=== PATIENT | male | born 1950 | race Caucasian/White ===

== ENCOUNTER 2018-10-20 06:05 | Inpatient (IN) | payer OTHER ==
[2018-10-09 09:04] LABS: ABSOLUTE BASOPHILS 0.1 thou/uL (0.0-0.2); ABSOLUTE EOSINOPHILS 0.2 thou/uL (0.0-0.7); ABSOLUTE LYMPHOCYTES 1.3 thou/uL (0.8-5.3); ABSOLUTE MONOCYTES 0.6 thou/uL (0.0-1.2); ABSOLUTE NEUTROPHILS 4.8 thou/uL (1.6-8.1); BASOPHILS 1.2 %; EOSINOPHILS 2.2 %; HEMOGLOBIN 14.5 gm/dL (14.0-18.0); LYMPHOCYTES 18.4 %; MCH 32.7 pg (26.0-34.0); MCHC 33.8 g/dL (28.0-37.0); MCV 96.7 fL (80.0-100.0); MPV 6.5 fl. (7.2-11.1); NUCLEATED RBCS 0 /100WBC; PLATELET COUNT* 459 thou/uL (150-400); POLYS 69.2 %; RBC 4.45 mil/uL (4.50-6.00); RDW-CV 13.9 % (10.5-14.5); WBC 6.9 thou/uL (4.0-11.0)
[2018-10-09 09:14] LABS: ALBUMIN 3.1 g/dL (3.4-5.0); CALCIUM 8.8 mg/dL (8.5-10.1); CREATININE 0.7 mg/dL (0.6-1.3); TOTAL BILIRUBIN 0.4 mg/dL (<0.1-1.0); TOTAL PROTEIN 6.7 g/dL (6.4-8.2)
[2018-10-09 09:18] LABS: APTT 32.6 Seconds (25.0-31.3); PROTIME 10.4 Seconds (9.20-11.50)
[2018-10-09 10:11] LABS: ESR (SEDRATE) 16 mm/hr (0-20)
--- NOTE | 2018-10-09 15:06 | EKG ---
[place] [address] ELECTROCARDIOGRAM REPORT Name: FABIO CHEEMAEN Kayode Room: [facility].#: [id number] Admission: Attend Phys: Iraj Mayes DO Discharge: Date of : 50 Report #: [id number] THIS REPORT FOR: //name// [facility] Test Date: 2018-10-09 Test Time: 09:10:35 Pat Name: JOEL CHEEMA Department: Room: Gender: M Sample Card Maker: : 1950 Requested By: Iraj Mayes Order Number: [id number] Reading MD: Mikael Cruz Measurements Intervals [place] Rate: 57 P: -57 PA: 199 QRS: 11 QRSD: 103 T: 12 QT: 386 QTc: 376 Interpretive Statements Sinus or ectopic atrial rhythm Low voltage, precordial leads No previous ECG available for comparison Electronically Signed On 10-09-2018 15:05:57 HOUSE DETECTIVE by Mikael Cruz [email or web address] <ELECTRONICALLY SIGNED> By: Mkiael Cruz MD, [facility] 10/09/18 1505 0910 0910 Mikael Cruz MD, FACC /EPI
[2018-10-09 21:06] LABS: GLYCOHEMOGLOBIN (HGB A1C) 5.1 % (4.8-5.6)
[~2018-10-20] VITALS: Ht 177.8 cm; Wt 122.2 kg
[~2018-10-20 06:05] MED LIST: COZAAR 25 MG TA25 M1 PO; LIPITOR 20 MG T20 M1 PO; LOPRESSOR50 PO; MOBIC15 MG PO; NORCO 5-325 TA1 EACH PO; SYNTHROID50 MCG PO
[2018-10-20] MEDS ORDERED: LASIX 20 MG TAB20 MG PO (06:19)
[2018-10-20 06:53] VITALS: BP 147/75
[2018-10-20 11:55] VITALS: BP 134/70
--- NOTE | 2018-10-20 12:05 | NUR ---
PATIENT TRANSFERRED FROM PACU TO ROOM 105. ALERT AND ORIENTED. PAIN CONTROLLED. DILAUDID IN PACU. ROOM AIR SAT 95%. CONT PULSE OX. CPAP AT HS. DRESSING TO LEFT KNEE C/D/I. POLAR CARE IN PLACE. SCD'S AND TEDS IN PLACE. VSS. ORIENTED TO ROOM AND ENVIROMENT. AT BEDSIDE. CALL LIGHT WITHIN REACH. WILL CONTINUE TO MONITOR.
[2018-10-20 16:33] VITALS: BP 118/65
--- NOTE | 2018-10-20 16:41 | NUR ---
PATIENT REMAINS ALERT AND ORIENTED. PAIN CONTROLLED WITH OXYIR. VOIDED PER URINAL. WORKED WITH PT. UP TO CHAIR. DRESSING TO KNEE C/D/I. TEDS IN PLACE. SCD'S WHILE IN BED. O2 2L. CONT PULSE OX. CPAP AT HS. TOLERATING MEALS. EDUCATED ON FALL PREVENTION. IVF INFUSING ORDERED. AT BEDSIDE. BED/CHAIR ALARM IN USE. CALL LIGHT WITHIN REACH. WILL CONTINUE TO MONITOR.
[2018-10-20 20:00] VITALS: BP 133/62
[2018-10-21 04:54] LABS: HEMATOCRIT 35.1 % (42.0-52.0); HEMOGLOBIN 11.7 gm/dL (14.0-18.0)
--- NOTE | 2018-10-21 05:55 | NUR ---
PATIENT HAS SLEPT OFF AND ON DURING THE NIGHT. VSS ON RA AND CONTINUOUS PULSE OXIMETRY. PAIN WELL CONTROLLED WITH ORAL PAIN MEDICATIONS ORDERED AND CHARTED. PATIENT IS UP WITH ASSIST X 1 WITH GAITBELT AND WALKER TO THE BATHROOM. DRESSING TO LEFT KNEE IS C/D/I, ICE PACK, KENDAL HOSE AND SCD'S IN PLACE. IV IN LEFT FOREARM-SL. IV ABT GIVEN WITHOUT ANY ADVERSE SIDE EFFECTS NOTED. PATIENT INSTRUCTED TO USE CALL LIGHT WHEN NEEDING ASSISTANCE. HOURLY ROUNDS MADE. WILL CONTINUE WITH PLAN OF CARE.
[2018-10-21 08:30] VITALS: BP 148/62
--- NOTE | 2018-10-21 12:13 | OP ---
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 POSTOPERATIVE DIAGNOSIS: Advanced degenerative joint disease of the left knee with morbid obesity. OPERATION PERFORMED: Left total knee arthroplasty with increased complexity secondary to morbid obesity. SURGEON: Iraj Mayes DO. ASSISTANTS: 1. Antony Tolbert DO 2. Linette Mayes DO ANESTHESIA: General with LMA. COMPLICATIONS: None. ESTIMATED BLOOD LOSS: 200 mL. IMPLANTS: Biomet Vanguard total knee system with a 31 mm asymmetric patella, a 67.5 mm posterior stabilized femoral component and a 79 mm fixed cruciate tibial baseplate and a 12 mm tibial bearing with 1 bag of Palacos cement plain. INDICATIONS FOR PROCEDURE: The patient is a 68-year-old male who had been followed in the orthopedic clinic regarding his longstanding left knee degenerative joint disease with severe pain. He has had poor quality of life due to the amount of arthritis in his left knee that keeps him from doing the activities which he enjoys. He has attempted conservative therapies over the last several years, which have not provided him with any significant long-term relief. He has tried oral anti-inflammatory, topical creams and intraarticular steroid injections as well as physical therapy for greater than 8 weeks, which has not given him any significant pain relief. The patient is here today for elective surgical intervention. Risks and complications [place] [address] OPERATIVE REPORT Name: JOEL CHEEMA Room: [address] IN [facility]#: [id number] Admission: 10/20/18 Attend Phys: Malaika Dave Discharge: Date of : 50 Report #: [id number] patient in detail. These include but are not limited to neurovascular damage, infection, fracture, need for further surgery, failure of prosthesis, recall of the prosthesis, allergies developed to the prosthesis, deep vein thrombosis, pulmonary embolism, myocardial infarction, rhabdomyolysis, continued chronic pain, decreased range of motion, need for blood transfusion, blood transfusion reactions, and even . A signed informed consent was signed by the patient. DESCRIPTION OF PROCEDURE: The patient was identified in preoperative holding area where the operative leg was marked. The patient was then taken to the operating room and placed on the operating table in the supine position. General anesthesia was then induced. A well-padded tourniquet was placed on the left proximal thigh. This was elevated to 300 mmHg throughout the procedure for a total of 77 minutes. Timeout was then performed and everyone is in the room was in agreement that this was the correct patient, procedure, operative side and that he had been given preoperative antibiotics. Incision was then made sharply through skin and subcutaneous tissue down to the level of the extensor mechanism. A standard medial parapatellar incision was then performed. The patient's weight and excessive soft tissue did necessitate extra help in the OR with retraction. The knee was then flexed to 120 degrees, where the chondral surfaces were found to be completely eburnated bone, particularly to the medial compartment of the joint. The excessive osteophytes were removed with a rongeur. The distal femoral drill guide was inserted into the femoral canal. The intramedullary cutting guide was then placed and pinned in the correct position. Distal cutting guide was pinned at 10 mm from the most distal aspect of the femur with a 5-degree valgus cut. Once pinned into place intramedullary kylah was removed. The distal femur was then resected. Next, attention was turned to the tibia. The external tibial guide was aligned in all planes and the cutting block was pinned into place. A 10 mm was taken from the high lateral points of the tibia. The bone wafer as well as the meniscal structures were then excised. Knee was then placed in extension, extension block was placed and was found to have symmetrical medial and lateral gapping. All pins were then removed. Next, the femur was measured anterior to posterior. The anterior and posterior measuring guide was then held in place and the 3-degree external rotation pins were drilled. A 4-in-1 cutting block was then impacted firmly into place. The anterior, posterior and anterior and posterior chamfer cuts were then performed. The cutting block was then removed as well as the bone wafers. The anterior cruciate ligament was resected at this time as well as the PCL. The tibia was then measured to the appropriate size. Tibial tray was then aligned in all planes utilizing a drop kylah to confirm appropriate positioning. This was then pinned into place. A trial femur component was then impacted firmly into place and a trial reduction was performed. The trial reduction was made with a posterior stabilized type knee component. Then, the femoral box was appropriately reamed. The knee was then placed through full range of motion and excellent stability was noted with a [address]. Anterior drawer test was excellent. Next, utilizing the Jorge reaming system for the patella, the patella was reamed to the appropriate width, measured and [facility] [address] [place] [address] OPERATIVE REPORT Name: JOEL CHEEMA GINNY Room: [address] [place] .R.#: [id number] Admission: 10/20/18 Attend Phys: Malaika Dave Discharge: Date of : 50 Report #: [id number] the drill holes for the patella were then made for the final patellar button. The trial button was applied. The knee was once again taken through full range of motion, was checked and the patella tracked appropriately. Next, the trial components were removed with the exception of the tibia. The tibia was then reamed and prepared with a punch for the final finned tibial tray. The trial tray was then removed. The posterior capsule was then injected with an anesthetic solution. The knee was thoroughly irrigated and thoroughly dried. Posterior osteophytes were then removed at this time. One bag of Palacos cement was mixed on the back table. When appropriate, it was placed onto the final components as well as placed into the interstices of bone under pressurization. The tibia was then placed first followed by the femur and the patellar button. All excess cement was removed. The patellar button was held in place with a clamp. Trial reduction was made with a 12 mm spacer. Final spacer was then obtained, inserted and locked in place with a locking bar. The knee was thoroughly irrigated, held at 90 degrees of flexion until complete hardening had occurred. The knee was then closed with a #1 Vicryl [id number] fashion sutures in the extensor mechanism, followed by a running #1 Quill throughout the entire extensor mechanism. The skin was reapproximated with 2-0 Monocryl subcutaneous sutures followed by 3-0 subcuticular Stratafix suture. Skin has been reinforced with Dermabond glue. A Mepilex dressing was applied and KENDAL hose were placed. The patient tolerated the procedure well and was taken to the recovery room in stable condition. No complications were encountered. The final instrument counts and sponge counts were correct x 2. Estimated blood loss 200 mL. <ELECTRONICALLY SIGNED> By: Jones Shirley DO 10/21/18 1213 1354 1947Iraj Mayes DO /nt
[2018-10-21 12:48] VITALS: BP 121/50
--- NOTE | 2018-10-21 14:58 | NUR ---
PT.UP IN CHAIR. AT BEDSIDE. PT.ALERT AND ORIENTED. WILL BE WITH HIM WHEN HE IS DISCHARGED FROM THE HOSPITAL TO ASSIST HIM NEEDED. HAS A ROLLATOR WALKER THAT USED TO BE HIS MOTHERS. TOLD HIM THERAPIST WOULD MAKE RECOMMENDATION ON WHETHER HE NEEDS A STANDARD WALKER WITH WHEELS. HE SAID HE GOT A STEROID INJECTION IN HIS RIGHT KNEE TODAY. HE SAID THAT KNEE HURSTS MORE THAN THE ONE HE HAD SURGERY ON. HE SAID HE HAS ARRANGED OUTPT.THERAPY APPTS. FOR /FRI THIS WEEK AND NEXT AT [facility]. POSSIBLE DISCHARGE TOMORROW.
[2018-10-21 16:44] VITALS: BP 135/63
--- NOTE | 2018-10-21 16:47 | NUR ---
PATIENT REMAINS ALERT AND ORIENTED. OXYIR EFFECTIVE FOR SURGICAL KNEE PAIN. PATIENT STARTED COMPLAINING OF RIGHT KNEE(NON OPERATIVE) PAIN THIS AM. ORTHO CAME AND INJECTED KNEE, AND LIDOCAINE PATCH PLACED. PATIENT STATES PAIN HAS NOT IMPROVED YET. VOIDING PER URINAL. PARTICIPATED WITH PT. AMBULATES AND TRANSFERS WITH ASSIST OF 1. TOLERATING MEALS. VSS. RA SAT 96%. BED/CHAIR ALARM IN USE. SCD'S IN PLACE. DRESSING C/D/I. AT BEDSIDE. WILL CONTINUE TO MONITOR.
[2018-10-22 00:17] VITALS: BP 113/53
[2018-10-22 04:25] VITALS: BP 119/54
[2018-10-22 04:42] LABS: HEMATOCRIT 33.4 % (42.0-52.0); HEMOGLOBIN 11.4 gm/dL (14.0-18.0)
--- NOTE | 2018-10-22 05:03 | NUR ---
PATIENT HAS SLEPT WELL THROUGHOUT THE NIGHT. VSS ON RA. PAIN WELL CONTROLLED. MEDICATIONS GIVEN ORDERED AND CHARTED. DRESSING TO LEFT KNEE IS C/D/I, KENDAL HOSE AND SCD'S IN PLACE. PATIENT IS UP WITH ASSIST X 1 WITH GAITBELT AND WALKER. IV IN LEFT FOREARM-SL. PATIENT INSTRUCTED TO USE CALL LIGHT WHEN NEEDING ASSISTANCE. HOURLY ROUNDS MADE. WILL CONTINUE WITH PLAN OF CARE AND NURSING TO MONITOR.
[2018-10-22 08:00] VITALS: BP 125/65
--- NOTE | 2018-10-22 10:55 | NUR ---
CALLED IN PRESCRIPTION FOR ELIQUIS, WRITTEN TO [facility]/[id number]. PHARMACIST SAID TO CALL BACK FOR COPAY. PT.WILL NEED FRONT WHEEL WALKER. CECILIO PROVIDER PLUS [employer] WALKER. ORDER OBTAINED. GAVE TO P.T.SECTION LEADER AND MACHINE SETTER TO DISPENSE WALKER PRIOR TO DISCHARGE.
--- NOTE | 2018-10-22 18:49 | NUR ---
PATIENT REMAINED ALERT AND ORIENTED X'S 4. VITAL SIGNS AND SPO2 STABLE. IV CLEAN, FLUSHING FLUIDS. TOLERATED DIET, NO NAUSEA AND VOMITING. PAIN WELL CONTROLLED WITH PAIN MEDS. COMPLETED PT/OT. SCD'S, TEDS IN PLACE. COMPLETED HOURLY ROUNDING. CALL LIGHT WITHIN REACH. WILL CONTINUE TO MONITOR.
[2018-10-22 20:00] VITALS: BP 111/43
--- NOTE | 2018-10-23 06:05 | NUR ---
PT. PROGRESSING WELL TOWARDS GOALS. NO COMPLAINTS OF PAIN UNTIL THIS MORNING AFTER HE WALKED TO THE RESTROOM VIA WALKER AND GOT BACK IN BED. STAND BY ASSIST. SLEPT WELL THROUGHOUT THE NIGHT. CALL LIGHT IS IN REACH, WILL CONTINUE TO MONITOR.
[2018-10-23 09:08] VITALS: BP 144/81
[2018-10-23] MEDS ORDERED: ELIQUIS2.5 MG PO (11:58)
[2018-10-23] MEDS ORDERED: ROXICODONE5 M2 PO (11:59)
[2018-10-23 13:54] VITALS: BP 144/81
[2018-10-23] MEDS ORDERED: ASPIRIN325 PO (14:10)
[2018-10-23 15:01] VITALS: BP 144/81
--- NOTE | 2018-10-23 15:02 | NUR ---
PT GIVEN DISCHARGE INFORMATION, PRESCRIPTIONS, AND CARE NOTES. IV REMOVED. PT BELONGINGS GATHERED. PT LEFT VIA WHEELCHAIR WITH NURSING STAFF TO HOME CARE. FALL RISK PRECAUTIONS IN PLACE. HOURLY ROUNDING COMPLETED.
== END 2018-10-23 15:03 | disposition home or self-care (01) | DRG 470 ==
LOC: M.SUR 06:05 → M.ORTHSURG 10:28 → M.SUR 10:40 → M.ORTHSURG 10-23 15:03
PROVIDERS: Orthopaedic Surgery; ADMIT Internal Medicine
PROC: 0SRD0J9 Replacement of Left Knee Joint with Synthetic Substitute, Cemented, Open Approach (ICD-10-PCS; principal; 2018-10-20)
DX: M17.12 Unilateral primary osteoarthritis, left knee (principal); E66.01 Morbid (severe) obesity due to excess calories; I25.10 Atherosclerotic heart disease of native coronary artery without angina pectoris; I10 Essential (primary) hypertension; E78.5 Hyperlipidemia, unspecified; E03.9 Hypothyroidism, unspecified; Z95.5 Presence of coronary angioplasty implant and graft; I25.2 Old myocardial infarction; Z68.38 Body mass index [BMI] 38.0-38.9, adult; Z88.8 Allergy status to other drugs, medicaments and biological substances; Z87.891 Personal history of nicotine dependence

== ENCOUNTER 2019-04-06 07:45 | Inpatient (IN) | payer OTHER ==
[2019-03-26 09:18] LABS: ABSOLUTE BASOPHILS 0.1 thou/uL (0.0-0.2); ABSOLUTE EOSINOPHILS 0.2 thou/uL (0.0-0.7); ABSOLUTE LYMPHOCYTES 1.2 thou/uL (0.8-5.3); ABSOLUTE MONOCYTES 0.6 thou/uL (0.0-1.2); ABSOLUTE NEUTROPHILS 4.1 thou/uL (1.6-8.1); BASOPHILS 1.5 %; EOSINOPHILS 3.8 %; HEMATOCRIT 39.2 % (42.0-52.0); HEMOGLOBIN 13.3 gm/dL (14.0-18.0); LYMPHOCYTES 18.6 %; MCH 31.1 pg (26.0-34.0); MCHC 33.9 g/dL (28.0-37.0); MCV 91.5 fL (80.0-100.0); MONOCYTES 9.6 %; MPV 6.3 fl. (7.2-11.1); NUCLEATED RBCS 0 /100WBC; PLATELET COUNT* 413 thou/uL (150-400); POLYS 66.5 %; RBC 4.28 mil/uL (4.50-6.00); RDW-CV 15.6 % (10.5-14.5); WBC 6.2 thou/uL (4.0-11.0)
[2019-03-26 09:30] LABS: INR 1.1; PROTIME 11.2 Seconds (9.20-11.50)
[2019-03-26 09:41] LABS: ALBUMIN 3.2 g/dL (3.4-5.0); CALCIUM 8.8 mg/dL (8.5-10.1); CREATININE 0.6 mg/dL (0.6-1.3); POTASSIUM 4.3 mmol/L (3.5-5.1); TOTAL BILIRUBIN 0.6 mg/dL (<0.1-1.0); TOTAL PROTEIN 6.8 g/dL (6.4-8.2)
[2019-03-26 10:35] LABS: ESR (SEDRATE) 12 mm/hr (0-20)
--- NOTE | 2019-03-26 17:18 | EKG ---
[place] [address] ELECTROCARDIOGRAM REPORT Name: JOEL CHEEMA Room: [facility]..#: [id number] Admission: Attend Phys: Iraj Mayes DO Discharge: Date of : 50 Report #: [id number] THIS REPORT FOR: //name// [facility] Test Date: 2019-03-26 Test Time: 09:18:27 Pat Name: JOEL CHEEMA Department: Room: Gender: M Urologist Physician: : [id number] Requested By: Iraj Mayes Order Number: [id number] Reading MD: Margarito Waterman Measurements Intervals [place] Rate: 55 P: -52 NM: 198 QRS: 20 QRSD: 107 T: 28 QT: 412 QTc: 394 Interpretive Statements Sinus or ectopic atrial rhythm Ventricular premature complex Low voltage, precordial leads Minimal ST elevation, inferior leads Compared to ECG 10/09/2018 09:10:35 Ventricular premature complex(es) now present ST (T wave) deviation now present Electronically Signed On 03-26-2019 17:18:01 CDT by Margarito Waterman [email or web address] <ELECTRONICALLY SIGNED> By: Margarito Waterman MD, [facility] 03/26/19 1718 7 7 Margarito Waterman MD, [facility] /EPI
[~2019-04-06] VITALS: Ht 180.3 cm; Wt 112.0 kg
[~2019-04-06 07:45] MED LIST changes: +ASPIR 8181 MG PO; +ASPIRIN325 PO; +ELIQUIS2.5 MG PO; +LASIX 20 MG TAB20 MG PO; +ROXICODONE5 M2 PO
[2019-04-06] MEDS ORDERED: TYLENOL325 MG PO (08:09)
[2019-04-06 09:00] VITALS: BP 133/66
[2019-04-06 16:00] VITALS: BP 147/63
--- NOTE | 2019-04-06 17:11 | NUR ---
PT ARRIVED FROM PACU ABOUT 1500. VITALS STABLE, CHARTED. ON 2LO2 WITH CONTINUOUS PULSE OX. TEDs AND SCDs IN PLACE. MEPILEX IS CLEAN, DRY AND INTACT. PAIN CONTROLLED WITH NORCO. IV PATENT, INFUSING. HAS NOT GOT UP DURING SHIFT. FALL PRECAUTIONS IN PLACE. CALL LIGHT WITHIN REACH. WILL CONTINUE TO MONITOR.
[2019-04-06 19:45] VITALS: BP 134/54
[2019-04-07] VITALS (7 sets, daily range): BP systolic 105–134; BP diastolic 41–62
[2019-04-07 04:34] LABS: HEMATOCRIT 33.5 % (42.0-52.0); HEMOGLOBIN 11.1 gm/dL (14.0-18.0)
--- NOTE | 2019-04-07 05:12 | NUR ---
PT HAS SLEPT OFF AND ON THIS SHIFT. RECEIVING HYDROCODONE PO FOR PAIN WITH GOOD RELIEF. CACHORRO SEGURA CDI, KENDAL HOSVasyl ON,SCDS. UP WITH WALKER AND ASSIST TO BR TO VOID. RFA IVF INFUSING PER PUMP, ABX GIVEN ORDERED. TOLERATING REGULAR DIET WITHOUT N/V. VOIDING WITHOUT DIFFICULTY.WEARING CPAP OVERNIGHT, ROOM AIR SAT 95% AM LAB DRAWN. ABLE TO USE CALL LITE AND MAKE NEEDS KNOWN.
--- NOTE | 2019-04-07 12:26 | NUR ---
CM CALLED IN PRESCRIPTION FOR ELIQUIS, WRITTEN, TO PT[facility] [address] [phone]. WILL CALL BACK FOR COPAY.
--- NOTE | 2019-04-07 15:11 | NUR ---
SW met with pt and pt to complete initial assessment, introduce self, and SW role. Pt lives at home with his . Pt has hx of OP therapy at [facility] after his other knee replacement and pt prefers this OP option and wants to request PT L[facility]. Pt has a rollator and pt has a standard front wheeled rolling walker. Pt says that he doesn't anticipate dc any before . COURTNEY INGRAM called in pt Eliquis, to be determined if pt able to afford med or if pt will need rx assistance. SW to continue to follow to assist with safe dc planning.
--- NOTE | 2019-04-07 16:43 | NUR ---
RECIEVED O.T. EVAL AND TX ORDERS. WILL DEFER TO P.T. AT THIS TIME. PLEASE ORDER FURTHER O.T. SERVICES.
--- NOTE | 2019-04-07 17:10 | NUR ---
PT REMAINED ALERT AND ORIENTED. PT WANTS TO STAY ANOTHER NIGHT FOR THERAPY AND PAIN CONTROL. PAIN MEDS GIVEN ORDERED. X1 ASSIST WITH WALKER AND GAIT BELT TO BATHROOM. FALL RISK PRECAUTIONS IN PLACE. HOURLY ROUNDING COMPLETED. WILL CONTINUE TO MONITOR.
[2019-04-08] VITALS: BP 122/56
[2019-04-08 04:00] VITALS: BP 148/60
[2019-04-08 04:14] LABS: HEMATOCRIT 35.2 % (42.0-52.0); HEMOGLOBIN 11.7 gm/dL (14.0-18.0)
--- NOTE | 2019-04-08 05:55 | NUR ---
PATIENT SLEPT MOST OF THE NIGHT. IV REMAINS SALINE LOCKED. PATIENT WAS GIVEN PAIN MEDICINE ONCE THIS SHIFT. DRESSING TO RIGHT KNEE REMAINS INTACT. PATIENT IS POSSIBLY GOING HOME TODAY. WILL CONTINUE TO MONITOR.
[2019-04-08 07:40] VITALS: BP 121/49
--- NOTE | 2019-04-08 12:15 | NUR ---
PT.IN BED. AT BEDSIDE. INFORMED HIM COPAY FOR HEBERT IS $21. HE SAID THAT SEEMED HIGHER THAN SOME OF HIS MEDS. EXPLAINED THAT THAT IS REALLY GOOD FOR HEBERT. HE WAS OK WITH THAT. HE CONTINUES TO [facility] AND [facility]. HE SAID HE PLANS TO GO HOME TOMORROW.
[2019-04-08 16:26] VITALS: BP 102/45
--- NOTE | 2019-04-08 17:34 | NUR ---
PT REMAINED ALERT AND ORIENTED. PT RESTING IN ROOM. PAIN MEDS GIVEN ORDERED. FALL RISK PRECAUTIONS IN PLACE. HOURLY ROUNDING COMPLETED. WILL CONTINUE TO MONITOR
[2019-04-08 20:50] VITALS: BP 115/38
--- NOTE | 2019-04-09 06:58 | NUR ---
PT ALERT AND ORIENTED. MEDS GIVEN ORDERED. PAIN CONTROLLED WITH HYDROCODONE AND TRAMADOL. DRESSING TO RT KNEE CLEAN AND DRY. KENDAL HOSE, SCDS IN PLACE. PT UP TO THE BATHROOM WITH MINIMUM ASSIST WITH WALKER AND GAIT BELT. HOURLY ROUNDING COMPLETED. WILL CONTINUE TO MONITOR.
[2019-04-09 07:55] VITALS: BP 113/53
[2019-04-09 09:20] VITALS: BP 113/53
[2019-04-09] MEDS ORDERED: ULTRAM 50MG TAB50 MG PO (12:10)
[2019-04-09] MEDS ORDERED: ELIQUIS2.5 MG PO (12:10)
[2019-04-09] MEDS ORDERED: NORCO 5-325 TA1 EAC1 PO (12:13)
--- NOTE | 2019-04-09 13:01 | NUR ---
PATIENT GIVEN DISHCARGE INSTRUCTIONS AND PRESCRIPTIONS AT THIS TIME. PATIENT VERBALIZED UNDERSTANDING IN REGARDS TO FOLLOW UP APPOINTMENTS, NEW MEDICATIONS, AND DRESSING CARE. PATIENT DISCHARGED TO HOME WITH ALL BELONGINGS. ESCORTED OFF NURSING UNIT VIA WHEELCHAIR WITH NURSING STAFF.
--- NOTE | 2019-04-09 13:34 | OP ---
[address] [address] OPERATIVE REPORT Name: JOEL CHEEMA Room: [address] IN .R.#: [id number] Admission: 04/06/19 Attend Phys: Malaika Dave Discharge: 04/09/19 Date of : 50 Report #: [id number] THIS REPORT FOR: //name// CC: Jaymie Solomon DICTATED BY: Antony Tolbert DO DATE OF SERVICE: 04/06/2019 PREOPERATIVE DIAGNOSIS: Right knee severe degenerative joint disease. POSTOPERATIVE DIAGNOSIS: Right knee severe degenerative joint disease. OPERATION PERFORMED: Right total knee arthroplasty. IMPLANTS: The Biomet system was utilized with the following components: 1. A size 67.5 posterior stabilized femoral component. 2. A size 75 tibial baseplate. 3. A size 14 mm posterior stabilized polyethylene insert. 4. A size 34 asymmetrical patellar component, also two bags of Biomet bone cement. SURGEON: Iraj Mayes DO. TEST CONSULTANT: Antony Tolbert DO [employer]: Diana Hernandez PA-C ESTIMATED BLOOD LOSS: 125 mL. ANTIBIOTICS: 2 grams IV Ancef given preoperatively. ANESTHESIA: General plus local infiltration. DRAINS: None. SPECIMENS: None. COMPLICATIONS: None. CONDITION: Stable. DISPOSITION: PACU to joint and spine floor. [address] [address] OPERATIVE REPORT Name: JOEL CHEEMA Room: [address]#: [id number] Admission: 04/06/19 Attend Phys: Malaika Dave Discharge: 04/09/19 Date of : 50 Report #: [id number] OPERATIVE INDICATIONS: The patient is pleasant 69-year-old male who has been followed in [facility] regarding a long-standing right knee pain. This has been ongoing for several years. He has severe degenerative joint disease which was confirmed on x-rays with loss of joint space, subchondral sclerosis, osteophytic lipping, also right clinical varus deformity, which is partially correctable. He tried conservative therapies over the last several years with attempted activity modifications, weight loss, physical therapy and intraarticular steroid injections. Despite trying these therapies, he continued to have severe pain, which is interfering with his quality of life and decrease his overall function. Therefore, we did recommend right total knee arthroplasty. Risks, indications, and treatment alternatives were reviewed with the patient. He was in agreement with the treatment plan and informed consent was signed. DESCRIPTION OF PROCEDURE: The patient was identified in the operative holding area where the right knee was confirmed by the patient with the operative side marked. He was taken to the operating suite and placed on the operating table in supine position where general anesthesia was then induced. A well-padded pneumatic tourniquet was placed on the right proximal thigh. This was inflated for a total of 56 minutes at 295 mmHg throughout the procedure. The right lower extremity was then sterilely prepped and draped in the usual fashion. Timeout was then performed to confirm that our safety checklist has been completed. Everyone in the room was in agreement. The midline incision was marked out over the anterior aspect of the knee. Sharp dissection was then carried down through the skin and subcutaneous tissue down to the level of the capsule. A new scalpel was then used to make the standard medial parapatellar arthrotomy. The subperiosteal flap was developed off the medial tibia. The patella was then everted and the knee was hyperflexed. The excess osteophytes were removed with a rongeur. The femur was drilled and our intramedullary distal femur guide was placed. This was pinned in appropriate positioning set to resect 11 mm from the distal femur and a 5-degree valgus cut. This was pinned and the distal femur cut was made through the capsular block. The bony cut surfaces were removed and we then proceeded to the proximal tibia where the external tibial cutting guide was aligned in all planes and pinned into position. Retractors were used to protect the patellar tendon as well as the collateral ligaments. The proximal tibial cut was then made through the capsular block set to resect 10 mm from the high lateral side. The medial tibial plateau had significant wear almost dished out and this cut did not completely go through this defect. Therefore, we did set to resect an additional 2 mm and this did engage the entirety of the medial plateau and did leave us with a nice cut flush surface. A medial ostectomy was performed and he was taken to full extension and the extension block was found to have full extension with tightness medially. We then proceeded back to our distal femur and the pins were removed. We then appropriately sized the femur with anterior to posterior sizing guide. This was a 67.5. This was drilled with 2 degrees of external rotation, which was perpendicular to Whitesides line. The appropriate size 4-in-1 cutting block was then impacted on to the distal [address] [address] OPERATIVE REPORT Name: JOEL CHEEMA Room: [address] DIS IN M.R.#: [id number] Admission: 04/06/19 Attend Phys: Malaika Dave Discharge: 04/09/19 Date of : 50 Report #: [id number] femur and the cuts were made sequentially through the capsular block, beginning with anterior cut, which gave a nice anterior cut, which was flushed with anterior cortex. We then proceeded to the posterior condylar cuts followed by the anterior and posterior chamfer cuts. The cutting block was then removed as the excess bony cut surfaces. At this time, the distal femur box cut guide was impacted onto the distal femur and the reaming system was utilized to perform the removal of bone for the box. This excess bone was then removed with a rongeur. At this time, we removed the meniscal remnants as well as the ACL and PCL. All the excess osteophytes were also removed. The posterior osteophytes were removed with a curved osteotome. The wound was then thoroughly irrigated. We then incised the tibial plateau to the appropriate size and made sure this was in appropriate alignment and rotation and the trial tibial baseplate was then pinned into position. The trial femur was then impacted on to the distal femur. A 12 mm spacer was then placed. The knee was taken to full range of motion once again and was found to have some tightness medially; however, there was full extension with full flexion. The patella was found to have significant wear, therefore, we proceeded with resurfacing. The reaming system was utilized down to a 14 mm thickness, which gave a nice flush cut surface. The patella was appropriately sized and the 3 peg holes were drilled through the guide. The patellar button was placed and was found to be tracking appropriately. The knee was placed in 90 degrees of flexion and lamina cloth spreader was placed and we did perform a partial release of the deep MCL with an 18-gauge needle. This did give us some more release of the medial side. Once this was completed and the excess posterior osteophytes were also removed, we found that our flexion and extension gaps were equal both medially and laterally. The trial patella and femoral components were then removed. The tibia was reamed and punched through the baseplate trial. This was then removed. The bony cut surfaces were then thoroughly irrigated. The local anesthetic cocktail was injected into the posterior capsule as well as the surrounding periosteum. The bone cement was then mixed on the back table. This was applied to the back surface of the final components. The bone was dried and the bone cement was also pressurized into the bone by hand. Final components were then impacted into position beginning with the tibia, followed by the femur and the patellar button, which was clamped in the position. All the excess bone cement was then removed. A 14-mm spacer was placed and placed through full range of motion and found to have full flexion and extension with symmetrical balance in the sagittal and coronal planes. Therefore, this was selected as a final spacer size and this was exchanged for the final spacer component, which was then locked into position with a locking bar. The knee was placed in full extension and once again copiously irrigated. The vancomycin powder was then sprinkled throughout the knee. The knee was then placed in 90 degrees of flexion and a layered closure was performed. Tourniquet was released at this time. There were no significant bleeders. Hemostasis was achieved with electrocautery. A #1 Vicryl was used to close the capsular layer. This was then oversewn with the #1 Stratafix suture. A subcutaneous layer was then reapproximated with 2-0 Monocryl suture. The subcuticular layer was then sewn back together with a 3-[place] [address] OPERATIVE REPORT Name: JOEL CHEEMA Room: [address] [place] .R.#: [id number] Admission: 04/06/19 Attend Phys: Malaika Dave Discharge: 04/09/19 Date of : 50 Report #: [id number] Exofin skin glue was then applied to the skin. A sterile dressing with Mepilex was then applied after the skin was dried. KENDAL hose were applied. The patient was awakened from general anesthetic and transferred to the PACU in stable condition with no apparent complications. Sponge and needle counts were correct x 2. ATTESTATION: Dr. Iraj Mayes was present for the entirety of the procedure including all vital portions. <ELECTRONICALLY SIGNED> By: Iraj Mayes DO 04/09/19 [id number] Mayes DO /nt
== END 2019-04-09 13:03 | disposition home or self-care (01) | DRG 470 ==
LOC: M.SUR 07:45 → M.ORTHSURG 15:24
PROVIDERS: Orthopaedic Surgery; ADMIT Internal Medicine
PROC: 0SRC0J9 Replacement of Right Knee Joint with Synthetic Substitute, Cemented, Open Approach (ICD-10-PCS; principal; 2019-04-06)
DX: M17.11 Unilateral primary osteoarthritis, right knee (principal); D62 Acute posthemorrhagic anemia; Z96.652 Presence of left artificial knee joint; E03.9 Hypothyroidism, unspecified; I10 Essential (primary) hypertension; E78.5 Hyperlipidemia, unspecified; I25.2 Old myocardial infarction; Z95.5 Presence of coronary angioplasty implant and graft; Z91.040 Latex allergy status; Z79.82 Long term (current) use of aspirin; Z79.899 Other long term (current) drug therapy